=== PATIENT | male | born 1940 | race Hispanic/Latino ===

== ENCOUNTER 2018-01-20 07:31 | Day surgery (SDC) | payer BC ==
[2018-01-12 10:39] VITALS: BMI 29.2
[2018-01-20 08:08] VITALS: O2SAT 98
[2018-01-20] MEDS ORDERED: Propofol 10 mg/ml Inj (20 ML) ONE (10:02)
[2018-01-20] MEDS ORDERED: Sodium Chloride 0.9% 1,000 ML IV SCH (10:30)
[2018-01-20 12:01] VITALS: BP 140/80; PULSE 76; RESP 18; TEMP 98
== END 2018-01-20 12:00 | disposition home or self-care (01) ==
LOC: ENDO 07:31
PROVIDERS: ATTEND Internal Medicine Gastroenterology
DX: Z12.11 Encounter for screening for malignant neoplasm of colon (principal); D12.0 Benign neoplasm of cecum; K57.30 Diverticulosis of large intestine without perforation or abscess without bleeding; K64.8 Other hemorrhoids
CPT/HCPCS: 45380; 88305; J2001; J2704; J7040 ×2

== ENCOUNTER 2018-07-19 06:20 | Day surgery (SDC) | payer BC ==
[2018-07-12 13:19] VITALS: BMI 29.7
[2018-07-19] MEDS ORDERED: Lidocaine 2% Inj (20ml) ONE (09:09)
[2018-07-19] MEDS ORDERED: Iohexol 350mgl/ml 50 ML ONE (09:10)
[2018-07-19] MEDS ORDERED: Iodixanol 320 MG/ML 200 ML BOTTLE IV ONE (09:10)
[2018-07-19] MEDS ORDERED: Heparin 2,000 ML IV ONE (09:10)
[2018-07-19] MEDS ORDERED: Iodixanol 320 MG/ML 100 ML BOTTLE IV ONE (09:10)
[2018-07-19] MEDS ORDERED: Midazolam 2 MG/2 ML VIAL ONE ×2 (09:32→09:35)
[2018-07-19] MEDS ORDERED: Sodium Chloride 0.9% 1,000 ML IV SCH (10:15)
[2018-07-19 10:32] VITALS: RESP 18; TEMP 97.5
[2018-07-19 12:15] VITALS: O2SAT 94
[2018-07-19 12:28] VITALS: BP 146/73; PULSE 58
--- NOTE | 2018-07-19 13:21 | CARDCATH ---
PROCEDURE DATE: 07/19/2018 PROCEDURE; 1. Selective left and right coronary angiography. 2. Left ventriculography. 3. Right femoral arteriography. 4. Angio-Seal deployment. HISTORY: This is a 77-year-old male with known coronary artery disease, status post prior PCI, who underwent a recent followup stress test showing evidence of significant anteroseptal ischemia. Cardiac catheterization was advised. INDICATION: Known coronary artery disease, abnormal stress test. FINDINGS: HEMODYNAMICS: The aortic pressure was 130/70, the left ventricular pressure 130/15. CORONARY ANATOMY: 1. The left mainstem was mildly calcified and had a 60% distal stenosis. 2. The left anterior descending artery had an 80% ostial stenosis. The distal vessel had mild irregularities as to the side branches. The LAD was of moderate size and caliber. 3. Left circumflex artery was a moderate-sized vessel giving rise to 2 obtuse marginal branches. The ostium of the left circumflex artery also had 50% stenosis. 4. The right coronary artery was dominant and of moderate size. There was a 40% narrowing in the proximal segment. The stents in the midportion of the vessel were patent with mild in-stent restenosis. The supervisor press room ascending artery was a moderate size vessel and fairly free of disease. LEFT VENTRICULOGRAPHY: A hand injection was performed in the left ventricle revealing a normal wall motion with ejection fraction of 70%. There was no aortic valve gradient noted on catheter pullback. Mitral regurgitation was not assessed. RIGHT FEMORAL ARTERIOGRAPHY: A right femoral arteriogram was performed in the PETERSON projection. This revealed no evidence of significant disease with appropriate level of arterial puncture. The puncture site was then closed with deployment of an Angio-Seal device. CONCLUSION: 1. Significant left main and ostial left anterior descending disease as well as moderate ostial circumflex system disease. 2. Patent right coronary artery stents. 3. Preserved left ventricular systolic function. RECOMMENDATIONS Given the complexity of his left main and LAD disease, revascularization with coronary artery bypass surgery has been advised. Arrangements will be made for this as an outpatient in the near future. In the interim, continue risk factor control as advised. Paddy Hare MD cc: Jacky Lewis MD. [facility] # [id number]
== END 2018-07-19 13:14 | disposition home or self-care (01) ==
LOC: CATH 06:20
PROVIDERS: ATTEND Internal Medicine Cardiovascular Disease
DX: I25.10 Atherosclerotic heart disease of native coronary artery without angina pectoris (principal); Z95.5 Presence of coronary angioplasty implant and graft; R94.39 Abnormal result of other cardiovascular function study; I10 Essential (primary) hypertension; R06.00 Dyspnea, unspecified